=== PATIENT | female | born 1985 | race Hispanic/Latino ===

== ENCOUNTER 2016-12-28 14:55 | Emergency (ER) | payer BC ==
[~2016-12-28] VITALS: Ht 157.5 cm; Wt 120.0 kg
[~2016-12-28 14:55] MED LIST: ASPIRIN81 M2 PO; NEPHRO-VITE RX1 EACH PO; PRENATAL TABLE1 EAC3 PO; SYNTHROID25 MCG PO
[2016-12-28 15:46] LABS: HEMATOCRIT 41.5 % (36.0-46.0); MCH 29.2 PG (29.0-34.0); MEAN PLAT.VOLUME 10.3 uM^3 (9.5-12.4); PLATELET COUNT 322 K/uL (156-360); RBC DIS.WIDTH-CV 12.8 % (11.8-14.6); RBC DIS.WIDTH-SD 42.5 % (39-53); RED BLOOD COUNT 4.56 M/uL (3.80-5.20); WHITE BLOOD COUNT 7.4 K/uL (4.1-10.2)
[2016-12-28 16:00] LABS: CHLORIDE 106 mEq/L (99-109); POTASSIUM 4.3 mEq/L (3.7-5.4); SODIUM 140 mEq/L (136-147)
[2016-12-28 16:03] LABS: GLUCOSE 84 mg/dL (70-99)
[2016-12-28 16:04] LABS: ANION GAP 11 MEQ/L (2-14)
[2016-12-28 16:05] LABS: TOTAL BILIRUBIN 0.3 mg/dL (0.0-1.0)
[2016-12-28 16:06] LABS: ALKALINE PHOSPHATASE 67 IU/L (3-129); GFR ESTIMATE (CALCULATED) > 59 mL/min/
[2016-12-28 16:07] LABS: UREA NITROGEN (BUN) 16 mg/dL (9-23)
[2016-12-28 16:10] LABS: LIPASE 37 U/L (1.0-51.0)
[2016-12-28 16:16] LABS: ADD MIUA? YES; BILIRUBIN NEGATIVE; BLOOD NEGATIVE; COLOR YELLOW ((YELLOW)); GLUCOSE (STRIP) NEGATIVE; KETONES NEGATIVE; LEUKOCYTES SMALL; NITRITE NEGATIVE; PROTEIN (STRIP) NEGATIVE; SPECIFIC GRAVITY 1.017 (1.000-1.030); UROBILINOGEN 0.2 MG/DL (0.2-1.0)
[2016-12-28 16:19] LABS: QUANTITATIVE HCG < 4.0 MIU/ML
[2016-12-28 16:35] LABS: BACTERIA NONE SEEN /HPF; CASTS NONE SEEN /LPF; CRYSTALS PRESENT; EPITHELIAL CELLS 3+ /HPF; MUCUS NONE SEEN /LPF; RED BLOOD CELLS NONE SEEN /HPF (0-5); WHITE BLOOD CELLS 0-5 /HPF (0-5)
[2016-12-28 16:36] LABS: AMORPHOUS PHOSPHATE CRYSTALS 3+
[2016-12-28] MEDS ORDERED: MOBIC7.5 MG PO (16:56)
[2016-12-28] MEDS ORDERED: FLEXERIL10 MG PO (16:56)
[2016-12-28 17:31] VITALS: BP 120/85
== END 2016-12-28 17:35 | disposition home or self-care (01) ==
LOC: EME 14:55
PROVIDERS: Nurse Practitioner Family
DX: R10.32 Left lower quadrant pain (principal); M25.512 Pain in left shoulder; E03.9 Hypothyroidism, unspecified
CPT/HCPCS: 73030; 74000; 80053; 81003; 83690; 84702; 84702 90; 85027; 99281; 99284

== ENCOUNTER → 2017-10-05 | Outpatient (CLI) | payer BC ==
[~2017-10-05] MED LIST changes: +FLEXERIL10 MG PO; +MOBIC7.5 MG PO
== END | disposition home or self-care (01) ==
LOC: CDC 12:33
DX: O24.119 Pre-existing type 2 diabetes mellitus, in pregnancy, unspecified trimester (principal)
CPT/HCPCS: 93000

== ENCOUNTER 2018-02-07 13:45 | Outpatient (CLI) | payer BC, OTHER ==
[2018-02-07 14:08] VITALS: BP 119/77
[2018-02-07] MEDS ORDERED: METFORMIN HCL500 MG PO (14:13)
[2018-02-07] MEDS ORDERED: ASPIRIN81 M2 PO (14:13)
[2018-02-07 14:59] LABS: BASOPHIL (%) 0.2 % (0-1); EOSINOPHIL (%) 1.9 % (0-5); EOSINOPHIL COUNT 0.2 K/uL (0-0.3); HEMATOCRIT 36.8 % (36.0-46.0); HEMOGLOBIN 12.2 G/DL (11.9-15.5); IMMATURE GRANULOCYTE (%) 0.4 % (0.0-0.7); LYMPHOCYTE (%) 9.2 % (15-42); MCH 29.8 PG (29.0-34.0); MCHC 33.2 G/DL (30.0-36.0); MCV 89.8 FL (83-99); MONOCYTE (%) 5.3 % (3-12); MONOCYTE COUNT 0.6 K/uL (0-0.8); NEUTROPHIL COUNT 8.9 K/uL (1.8-6.4); PLATELET COUNT 316 K/uL (156-360); RBC DIS.WIDTH-SD 42.6 % (39-53); WHITE BLOOD COUNT 10.7 K/uL (4.1-10.2)
== END 2018-02-07 17:20 | disposition home or self-care (01) ==
LOC: LDRP-OP 13:45 → 2WEST 13:46 → LDRP-OP 05-01 10:27
PROVIDERS: Advanced Practice Midwife
DX: O99.513 Diseases of the respiratory system complicating pregnancy, third trimester (principal); J11.1 Influenza due to unidentified influenza virus with other respiratory manifestations; O09.893 Supervision of other high risk pregnancies, third trimester; O99.283 Endocrine, nutritional and metabolic diseases complicating pregnancy, third trimester; E03.9 Hypothyroidism, unspecified; E72.12 Methylenetetrahydrofolate reductase deficiency; E11.9 Type 2 diabetes mellitus without complications; Z79.84 Long term (current) use of oral hypoglycemic drugs; O99.213 Obesity complicating pregnancy, third trimester; E66.01 Morbid (severe) obesity due to excess calories; Z68.42 Body mass index [BMI] 45.0-49.9, adult; Z3A.32 32 weeks gestation of pregnancy
CPT/HCPCS: 59025; 76818; 85025; 87081; 87502; 87651 90; G0378

== ENCOUNTER 2018-03-25 08:05 | Inpatient (IN) | payer BC, OTHER ==
[2018-03-25] VITALS (21 sets, daily range): BP systolic 98–158; BP diastolic 52–102
[~2018-03-25] VITALS: Ht 162.6 cm; Wt 127.2 kg
[~2018-03-25 08:05] MED LIST changes: +METFORMIN HCL500 MG PO
[2018-03-25] MEDS ORDERED: METFORMIN HCL750 MG PO (09:01)
[2018-03-25] MEDS ORDERED: ZANTAC150 MG PO (09:02)
[2018-03-25 09:34] LABS: AMPHETAMINE NEGATIVE (500 ng/mL); BARBITURATES NEGATIVE (200 ng/mL); BENZODIAZEPINES NEGATIVE (150 ng/mL); BUPRENORPHINE NEGATIVE (10 ng/mL); COCAINE NEGATIVE (150 ng/mL); METHADONE NEGATIVE (200 ng/mL); METHAMPHETAMINE NEGATIVE (500 ng/mL); OPIATES (MORPHINE) NEGATIVE (100 ng/mL); OXYCODONE NEGATIVE (100 ng/mL); PHENCYCLIDINE NEGATIVE (25 ng/mL); PROPOXYPHENE NEGATIVE (300 ng/mL); THC CANNABINOIDS NEGATIVE (50 ng/mL); TRICYCLIC ANTIDEPRESSANTS NEGATIVE (300 ng/mL)
[2018-03-25 10:00] LABS: BASOPHIL (%) 0.2 % (0-1); EOSINOPHIL (%) 0.7 % (0-5); EOSINOPHIL COUNT 0.1 K/uL (0-0.3); HEMATOCRIT 38.4 % (36.0-46.0); HEMOGLOBIN 12.8 G/DL (11.9-15.5); IMMATURE GRANULOCYTE (%) 0.4 % (0.0-0.7); LYMPHOCYTE (%) 16.8 % (15-42); LYMPHOCYTE COUNT 1.4 K/uL (1.0-2.8); MCH 28.8 PG (29.0-34.0); MCHC 33.3 G/DL (30.0-36.0); MCV 86.3 FL (83-99); MONOCYTE (%) 6.6 % (3-12); MONOCYTE COUNT 0.6 K/uL (0-0.8); NEUTROPHIL (%) 75.3 % (45-76); NEUTROPHIL COUNT 6.3 K/uL (1.8-6.4); PLATELET COUNT 324 K/uL (156-360); RBC DIS.WIDTH-CV 12.9 % (11.8-14.6); RBC DIS.WIDTH-SD 39.8 % (39-53); RED BLOOD COUNT 4.45 M/uL (3.80-5.20); WHITE BLOOD COUNT 8.4 K/uL (4.1-10.2)
[2018-03-25 10:20] LABS: ALBUMIN 3.3 G/DL (3.2-4.8); ALKALINE PHOSPHATASE 156 IU/L (3-129); ALT (GPT) 30 IU/L (3-49); AST (GOT) 23 IU/L (2-34); CHLORIDE 102 MEQ/L (99-109); CREATININE 0.7 MG/DL (0.6-1.3); GFR ESTIMATE (CALCULATED) > 59 mL/min/; GLUCOSE 132 mg/dL (70-99); SODIUM 132 MEQ/L (136-147); TOTAL BILIRUBIN 0.4 MG/DL (0.0-1.0); UREA NITROGEN (BUN) 7 mg/dL (9-23)
[2018-03-26] VITALS (14 sets, daily range): BP systolic 110–152; BP diastolic 55–85
[2018-03-27 07:03] LABS: BASOPHIL (%) 0.5 % (0-1); BASOPHIL COUNT 0.1 K/uL (0-0.1); EOSINOPHIL (%) 2.2 % (0-5); EOSINOPHIL COUNT 0.3 K/uL (0-0.3); HEMATOCRIT 36.7 % (36.0-46.0); IMMATURE GRANULOCYTE (%) 0.3 % (0.0-0.7); LYMPHOCYTE (%) 24.3 % (15-42); LYMPHOCYTE COUNT 2.9 K/uL (1.0-2.8); MCHC 32.7 G/DL (30.0-36.0); MCV 88.6 FL (83-99); MONOCYTE COUNT 0.7 K/uL (0-0.8); NEUTROPHIL (%) 66.7 % (45-76); NEUTROPHIL COUNT 7.9 K/uL (1.8-6.4); PLATELET COUNT 313 K/uL (156-360); RBC DIS.WIDTH-SD 41.9 % (39-53); RED BLOOD COUNT 4.14 M/uL (3.80-5.20); WHITE BLOOD COUNT 11.9 K/uL (4.1-10.2)
[2018-03-27 07:23] VITALS: BP 108/59
[2018-03-27 14:00] VITALS: BP 112/57
[2018-03-27 14:29] VITALS: BP 112/63
[2018-03-27 23:31] VITALS: BP 104/57
[2018-03-28 12:31] VITALS: BP 131/78
[2018-03-28 13:20] LABS: BASOPHIL (%) 0.4 % (0-1); EOSINOPHIL (%) 3.4 % (0-5); EOSINOPHIL COUNT 0.3 K/uL (0-0.3); HEMATOCRIT 33.7 % (36.0-46.0); HEMOGLOBIN 10.9 G/DL (11.9-15.5); IMMATURE GRANULOCYTE (%) 0.2 % (0.0-0.7); LYMPHOCYTE COUNT 1.3 K/uL (1.0-2.8); MCH 28.9 PG (29.0-34.0); MCHC 32.3 G/DL (30.0-36.0); MCV 89.4 FL (83-99); MONOCYTE COUNT 0.5 K/uL (0-0.8); NEUTROPHIL COUNT 6.4 K/uL (1.8-6.4); PLATELET COUNT 317 K/uL (156-360); RBC DIS.WIDTH-CV 13.1 % (11.8-14.6); RBC DIS.WIDTH-SD 42.5 % (39-53); RED BLOOD COUNT 3.77 M/uL (3.80-5.20); WHITE BLOOD COUNT 8.5 K/uL (4.1-10.2)
== END 2018-03-28 14:22 | disposition home or self-care (01) | DRG 774 ==
LOC: LDRP-OP 08:05 → 2WEST 08:06 → LDRP-OP 05-01 17:50
PROVIDERS: Advanced Practice Midwife; Obstetrics & Gynecology Obstetrics
PROC: 3E0R3BZ Introduction of Anesthetic Agent into Spinal Canal, Percutaneous Approach (ICD-10-PCS; principal; 2018-03-25)
PROC: 00HU33Z Insertion of Infusion Device into Spinal Canal, Percutaneous Approach (ICD-10-PCS; principal; 2018-03-25)
PROC: 10907ZC Drainage of Amniotic Fluid, Therapeutic from Products of Conception, Via Natural or Artificial Opening (ICD-10-PCS; principal; 2018-03-25)
PROC: 3E033VJ Introduction of Other Hormone into Peripheral Vein, Percutaneous Approach (ICD-10-PCS; 2018-03-26)
PROC: 10E0XZZ Delivery of Products of Conception, External Approach (ICD-10-PCS; 2018-03-26)
DX: O24.12 Pre-existing type 2 diabetes mellitus, in childbirth (principal); E11.9 Type 2 diabetes mellitus without complications; O69.81X0 Labor and delivery complicated by cord around neck, without compression, not applicable or unspecified; O99.214 Obesity complicating childbirth; E66.01 Morbid (severe) obesity due to excess calories; Z68.42 Body mass index [BMI] 45.0-49.9, adult; O99.284 Endocrine, nutritional and metabolic diseases complicating childbirth; E72.12 Methylenetetrahydrofolate reductase deficiency; E03.9 Hypothyroidism, unspecified; O99.824 Streptococcus B carrier state complicating childbirth; Z3A.39 39 weeks gestation of pregnancy; Z37.0 Single live birth; Z79.84 Long term (current) use of oral hypoglycemic drugs
CPT/HCPCS: 80053; 82948; 82950; 85025; C1755; G0378; J1050; J1815; J2405; J2540; J2765; J3010; J7120